=== PATIENT | male | born 1980 | race Caucasian/White ===

== ENCOUNTER 2017-05-18 07:23 | Emergency (ER) | payer SELFPAY ==
[~2017-05-18] VITALS: Ht 167.6 cm; Wt 73.9 kg
[2017-05-18 08:13] VITALS: BP 131/71
== END 2017-05-18 08:13 | disposition home or self-care (01) ==
LOC: ED 07:23
DX: J03.90 Acute tonsillitis, unspecified (principal); M79.1 Myalgia; R11.10 Vomiting, unspecified
CPT/HCPCS: J0696; J1100